=== PATIENT | female | born 1960 | race Asian ===

== ENCOUNTER 2016-09-18 10:58 | Inpatient (IN) | payer MEDICAID ==
[2016-09-17 14:47] VITALS: BMI 36.7
--- NOTE | 2016-09-17 19:45 | HP ---
DATE OF ADMISSION: 09/18/2016 ADMITTING DIAGNOSES: 1. Right breast cancer for right mastectomy with possible right axillary lymph node resection with dissection biopsy to be done by Dr. Alton Samuels. 2. Diabetes mellitus type 2, controlled. 3. Hypertension. 4. Osteoporosis. HISTORY OF PRESENT ILLNESS: The patient is a 56-year-old female ____ preoperative workup done on he r. Biopsy done and showed that she has right breast cancer. The patient was evaluated by Dr. Mary sheffield and then scheduled for biopsy on her. The patient had, on 06/20/2016, biopsy shows papilla ry carcinoma, nucleated, grade intermediate involved 3/4 tissue fragments. The patient admitted for further management and workup. HABITS: Not a smoker, drinker. No drug abuser. FAMILY HISTORY: The patient has a positive family history of diabetes mellitus, hypertension, heart disease, and cancer in family. MEDICATIONS: 1. Lantus 25 units subq daily. 2. Hyzaar 100/12.5 mg once a day. 3. Norvasc 10 mg once a day. 4. Allopurinol 100 mg once a day. 5. Glipizide 10 mg b.i.d. 6. Vitamin D 1000 units 3 times a day. PAST MEDICAL HISTORY: The patient has history of diabetes mellitus, hypertension, gout with gouty a rthritis, dyslipidemia, obesity, myopia, and her newly diagnosed breast cancer. PAST SURGICAL HISTORY: None. GYNECOLOGIC HISTORY: The patient and mother of 2 kids, normal delivery. REVIEW OF SYSTEMS: GASTROINTESTINAL: No history of upper or lower GI bleeding. No history of liver disease or abdomin al pain. RESPIRATORY: No shortness of breath or cough. No pulmonary tuberculosis or hemoptysis. CARDIOVASCULAR: Hypertension. No chest pain or peripheral vascular disease. EKG normal. She has no peripheral vascular disease. ENDOCRINE: Diabetes mellitus. No thyroid disease. History of hyperuricemia and hyperlipidemia. MUSCULOSKELETAL: No arthritis or joint disease. SKIN: No urticaria, dermatitis, or skin lesions. PHYSICAL EXAMINATION: GENERAL: The patient is awake, alert, looks stated age, not in pain or shortness of breath. VITAL SIGNS: On admission show blood pressure 130/80, pulse 82, temperature 97.6. She weighs 188 p ounds. She is 63 inches high. HEAD: Normocephalic, atraumatic. Pupils equal, react to light and accommodation. Sclerae anicteri c. Extraocular movements normal limits. Throat clear. No sign of acute infection seen. Facial sk in and scalp within normal limits. NECK: Supple, trachea central. No thyroid enlargement, no cervical lymphadenopathy. Carotid pulse normal. No jugular venous distention. CHEST: Normal contour with normal inspiration and expiration. LUNGS: Clear to auscultation and percussion. HEART: Regular sinus rhythm. No rub or murmur. PMI localized in midclavicular line, fourth interc ostal space. ABDOMEN: Umbilicus central. No organomegaly. No tenderness or rebound tenderness. Bowel sounds p ositive. GENITALIA: External genitalia within normal limits. EXTREMITIES: Upper and lower extremities normally shaped at this moment. No clubbing, no cyanosis, no deformity. Good peripheral pulse. No edema. IMPRESSION: 1. 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 Sa marj Samuels. 2. Diabetes mellitus type 2, controlled. PLAN: The patient cleared for surgery and will follow up. PROGNOSIS: Fair to guarded. CODE STATUS: FULL CODE. Dictated By: BRIDGER KESSLER/ROSA Conf#: [id number] DID#: [id number] CC: ALTON SAMUELS MD;*EndCC*
[~2016-09-18] VITALS: Ht 160 cm; Wt 84.5 kg
[2016-09-18] VITALS (24 sets, daily range): BP systolic 119–149; BP diastolic 57–79; PULSE 16–98; RESP 10–19; Ht 160 cm; Wt 84.5 kg
[~2016-09-18 10:58] MED LIST: EPHEDrine SULFATE 50 MG/5 ML SYG ONE
[2016-09-18] MEDS ORDERED: ISOSULFAN BLUE 1% 5 ML INJ SC ONE ×2 (11:46→14:00)
[2016-09-18] MEDS ORDERED: FENTAnyl 50 MCG/ML VIAL ONE ×3 (13:12→15:10)
[2016-09-18] MEDS ORDERED: LANT3I SC ×2 (13:41→13:42)
[2016-09-18] MEDS ORDERED: SAXA5TAB2 PO (13:45)
[2016-09-18] MEDS ORDERED: GLYB5TAB3 PO (13:45)
[2016-09-18] MEDS ORDERED: AMLO5TAB4 PO (13:46)
[2016-09-18] MEDS ORDERED: LOSA1TAB21 PO (13:46)
[2016-09-18] MEDS ORDERED: ALLO300T2 PO (13:48)
[2016-09-18] MEDS ORDERED: PRAV40TA76 PO (13:48)
[2016-09-18] MEDS ORDERED: CRAN250T2 PO (13:49)
[2016-09-18] MEDS ORDERED: CHOL100062 PO (13:49)
[2016-09-18] MEDS ORDERED: HYDROmorphONE (0.2 MG/ML) 10ML SYG IV PRN ×2 (14:00)
[2016-09-18] MEDS ORDERED: DIPHENHYDRAMINE 50 MG INJ IV PRN (14:00)
[2016-09-18] MEDS ORDERED: MEPERIDINE 25 MG INJ IV PRN (14:00)
[2016-09-18] MEDS ORDERED: FENTAnyl 50 MCG/ML VIAL IV PRN (14:00)
[2016-09-18] MEDS ORDERED: METOCLOPRAMIDE 10 MG INJ IV PRN (14:00)
[2016-09-18] MEDS ORDERED: ONDANSETRON 4 MG INJ IV PRN (14:00)
[2016-09-18] MEDS ORDERED: SUCCINYLCHOLINE CHLORIDE 100 MG/5 ML SYG IV ONE (15:20)
[2016-09-18] MEDS ORDERED: ROCURONIUM 50 MG INJ ONE (15:20)
[2016-09-18] MEDS ORDERED: PROPOFOL 40 ML ONE (15:20)
[2016-09-18] MEDS ORDERED: CEFAZOLIN 1 GM INJ ONE (15:20)
[2016-09-18] MEDS ORDERED: GLYCOPYRROLATE 0.4 MG INJ ONE (15:20)
[2016-09-18] MEDS ORDERED: NEOSTIGMINE 3 MG/3 ML SYRINGE ONE (15:20)
[2016-09-18] MEDS ORDERED: LIDOCAINE 2% (SDV) 5 ML INJ ONE (15:20)
[2016-09-18] MEDS: HYDROmorphONE (0.2 MG/ML) 10ML SYG IV PRN ×2 (16:27→16:40)
[2016-09-18] MEDS ORDERED: HYDROmorphONE 1 MG/ML SYG IV PRN (16:30)
[2016-09-18] MEDS ORDERED: HYDROCODONE/APAP (5/325) TAB PO PRN (16:30)
--- NOTE | 2016-09-18 16:43 | OPR ---
DATE OF OPERATION: 09/18/2016 PREOPERATIVE DIAGNOSIS: Right breast adenocarcinoma. POSTOPERATIVE DIAGNOSIS: Right breast adenocarcinoma. OPERATION PERFORMED: 1. Right mastectomy. 2. Right axillary sentinel lymph node sampling SURGEON: Alton Bravo MD OPTOMETRY ASSISTANT: None. ANESTHESIA: General endotracheal. ANESTHESIOLOGIST: BERT THAKKAR MD. COMPLICATIONS: None. SPECIMEN: Right breast with short superior, long lateral and axillary lymph nodes. INDICATION: This is a 56-year-old female with a right breast lesion with a positive biopsy for maste ctomy. Risks, benefits, alternatives have been reviewed from the patient, including but not limited to recurrence of cancer, infection, bleeding, wound formation, chronic pain, seroma, hematoma, absc ess, damage to nerves, lymphedema, need for further surgeries or procedures, heart attack, stroke, P E, DVT, pneumonia, organ failures or . The patient fully understands and elects to proceed wit h surgery. DISPOSITION: Tolerated procedure well and extubated and transferred to recovery in stable condition . All counts were correct at the end of the operation x2. PROCEDURE NOTE: The patient was brought in, placed supine on the operating table. SCDs were placed . Preoperative antibiotics administered and after induction of anesthesia, right shoulder was bumpe d and all areas were fully padded. She was prepped and draped sterilely. Time-out was performed. An elliptical incision was made on the breast to encompass 2 different moles she had. Therefore, th e incision had to be larger than usual. Dissection was carried superiorly to the clavicle, medially to the sternum, inferiorly to the inframammary fold and laterally to the axillary line and posterio rly removing the breast tissue with fascia off of the pectoralis. Complete hemostasis was obtained. Dissection was carried into the axilla and there was minimal blue dye at this time. After waiting a bout 20 to 30 minutes, the Lymphazurin was injected into the right upper lateral quadrant of the laura ast. A few samples of lymph nodes around blue dye were excised circumferentially with clips sutures tying the tissue with complete hemostasis. This was sent to pathology for frozen section. Wound was irrigated with warm water to clean suctioning fluid. There was complete hemostasis. A 19 -[place]oven[place] Emory was placed through the right axillary into the wound and secured with 2-0 nylon. The wound was closed in 2 layers with 2-0 running Vicryl dermal closure x2 followed by 4-0 Monocryl subc uticular closure followed by benzoin and Steri-Strips. Dressings and fluffs were applied. The florencio ent was extubated and transferred to recovery in stable condition. All counts were correct at the e nd of the operation x2. Dictated By: ALTON CORDOVA/ROSA Conf#: [id number] DID#: [id number]
[2016-09-18] MEDS: ONDANSETRON 4 MG INJ IV PRN (19:18)
[2016-09-18] MEDS: D5W-0.45 NACL + KCL 20 MEQ 1,000 ML IV SCH (21:33)
[2016-09-19] MEDS: ONDANSETRON 4 MG INJ IV PRN (00:24)
[2016-09-19] MEDS: D5W-0.45 NACL + KCL 20 MEQ 1,000 ML IV SCH ×3 (04:51→17:21)
[2016-09-19 05:49] LABS: ADD SCAN DIFF NO
[2016-09-19] MEDS: PANTOPRAZOLE (EC) 40 MG TAB PO SCH (05:49)
[2016-09-19 05:57] LABS: BASOPHILS % 0.1 % (0.0-2.0); HEMATOCRIT 30.4 % (37.0-47.0); HEMOGLOBIN 9.8 g/dl (12.0-16.0); LYMPHOCYTES % 6.5 % (15.0-51.0); MEAN CORPUSCULAR HEMOGLOBIN 29.6 pg (29.0-33.0); MEAN CORPUSCULAR HGB CONC 32.2 g/dl (32.0-37.0); MEAN CORPUSCULAR VOLUME 91.8 fl (82.0-101.0); MEAN PLATELET VOLUME 11.3 fl (7.4-10.4); MONOCYTE # 0.6 10^3/ul (0.3-0.9); MONOCYTES % 4.2 % (0.0-11.0); NEUTROPHIL # 13.6 10^3/ul (1.6-7.5); NEUTROPHILS % 88.8 % (39.0-77.0); PLATELET COUNT 239 10^3/UL (140-415); RED BLOOD COUNT 3.31 10^6/ul (4.20-5.40); WHITE BLOOD COUNT 15.3 10^3/ul (4.8-10.8)
[2016-09-19 06:16] LABS: CALCIUM 9.2 mg/dl (8.4-10.2); CREATININE 1.39 mg/dl (0.44-1.00); POTASSIUM 4.3 mmol/L (3.5-5.1)
[2016-09-19 07:26] VITALS: BP 122/60; RESP 16
[2016-09-19] MEDS ORDERED: GLUCOSE GEL 15 GRAM TUBE PO PRN ×2 (15:30)
[2016-09-19] MEDS ORDERED: GLUCAGON 1 MG INJ IM PRN (15:30)
[2016-09-19] MEDS ORDERED: GLUCOSE GEL 15 GRAM TUBE BUCCAL PRN (15:30)
[2016-09-19] MEDS ORDERED: DEXTROSE 50% 50 ML SYRINGE IV PRN ×2 (15:30)
[2016-09-19] MEDS: ACCU-CHEK XX SCH ×2 (17:37→21:00)
[2016-09-19] MEDS: INSULIN ASPART [NOVOLOG] 3 ML PEN SC SCH ×2 (18:05→21:34)
[2016-09-19 19:28] VITALS: BP 138/71; RESP 16
[2016-09-19] MEDS: HYDROCODONE/APAP (5/325) TAB PO PRN (20:36)
[2016-09-20] MEDS: PANTOPRAZOLE (EC) 40 MG TAB PO SCH (06:20)
--- NOTE | 2016-09-20 07:29 | PN ---
DATE: 09/19/2016 WORKING DIAGNOSES: 1. Postoperative day #1 right breast cancer mastectomy with lymph node dissection. 2. SANTANA drainage ____ with 55 mL serosanguineous fluid since surgery. 3. Diabetes mellitus type 2, uncontrolled. 4. Hypertension. SUMMARY: The patient is a 56-year-old female who had successful surgery by Dr. Bravo yesterday an d she was transferred to the floor postop and she is in stable condition. She denies any pain or sh ortness of breath. The patient had SANTANA drain right side drainage. Her chem panel done today shows B UN 29 and creatinine 1.3, and glucose was 236. Her Accu-Chek is started now. We will monitor her b lood sugar level. WBC postop 15.3, hemoglobin 9.8. Neutrophils 88.8. Total intake was 3190, output 1005 mL, 2185 positive. Weight is 84.5. MEDICATIONS: Currently on: 1. Protonix 40 mg once a day. 2. Zofran 4 mg q.6h. p.r.n. nausea, vomiting. 3. [place] 2 tabs q.4h. p.r.n. pain. 4. Dilaudid 0.5 IV as needed ____. 5. Potassium IV fluid D5 half NS with potassium at 80 mL an hour. PHYSICAL EXAMINATION: VITAL SIGNS: Today temperature was 98.7, pulse 98, respirations 19, blood pressure 122/60, pulse ox 98. GENERAL: The patient is awake, alert, looks stated age. HEENT: Head normocephalic, atraumatic. Pupils equal, react to light and accommodation. Sclerae an icteric. Extraocular movements normal limits. Throat clear. No sign of acute infection seen. Fac ial skin and scalp within normal limits. NECK: Supple, trachea central, no thyroid enlargement, no cervical lymphadenopathy. Carotid pulse normal. No jugular venous distention. CHEST: Normal contour. Normal inspiration and expiration. Patient had a surgical wound of right b reast resection with SANTANA drain. Wounds clean, dressing dry, ____the chest to prevent any hematoma po stoperatively. The patient denies any pain or itching in the chest. Left breast normal limits. LUNGS: Clear to auscultation and percussion. HEART: Regular sinus rhythm. No rub or murmur. PMI localized in midclavicular line, fourth interc ostal space. ABDOMEN: Umbilicus central. No organomegaly. No tenderness or rebound tenderness. Bowel sounds p ositive. GENITALIA: External genitalia within normal limits. VAGINAL AND RECTAL: Deferred. EXTREMITIES: Upper and lower extremities normally shaped at this moment. No clubbing, no cyanosis or deformity. Good peripheral pulse, no edema. NEUROLOGICAL: Cranial nerves II to XII and peripheral nerves, sensory and motor grossly normal limi ts. Gait normal. PLAN: We will do Accu-Chek on her twice a day with moderate sliding scale with NovoLog. I discusse d her case with the nurse, and Dr. Bravo. Total of drainage of around 150 mL postop____ 24 hours. We will monitor her for drainage. ____trending decreasing down ____can go home safety. IV fluid continue pending Dr. Bravo's orders. PROGNOSIS: Fair to guarded. CODE STATUS: FULL CODE. Dictated By: BRIDGER KESSLER/ROSA Conf#: [id number] DID#: [id number]
--- NOTE | 2016-09-20 07:34 | CONS ---
Date/Time of Note Date/Time of Note DATE: 09/20/16 TIME: 07:32 Consultation Date/Type/Reason Admit Date/Time Sep 18, 2016 at 17:31 Initial Consult Date 09/19/16 Type of Consultation: Anesthesiology Reason for Consultation Follow up 24 HR Interval Summary Free Text/Dictation Pt was seen and examined is post-op day #1 s/p right Mastectomy with sentinal lymph node biopsy. Pt was admitted post-op for hemodynamic monitoring. She states her pain level is currently minimal and pain is controlled adequately. No N/V/D/C. Will continue to follow up. Exam/Review of Systems Vital Signs Vitals Vital Signs Date Time Temp Pulse Resp B/P Pulse Ox O2 Delivery O2 Flow Rate FiO2 09/19/16 19:28 98.6 76 16 138/71 99 09/18/16 20:01 Room Air 09/18/16 16:49 6.0 Intake and Output 09/19/16 09/19/16 09/20/16 14:59 22:59 06:59 Intake Total 360 ml 1720 ml 1300 ml Output Total 2410 ml 870 ml Balance 360 ml -690 ml 430 ml Results Result Diagram: 09/19/16 0525 09/19/16 0525 Results 24 hrs Laboratory Tests Test 09/19/16 17:36 09/19/16 20:38 09/20/16 02:27 Bedside Glucose 161 189 122 Medications Medications Current Medications Ondansetron HCl (Zofran Inj) 4 mg Q6H PRN IV NAUSEA AND/OR VOMITING Last administered on 09/19/16 00:24; Admin Dose 4 MG; Start 09/18/16 at 16:30 Pantoprazole 40 mg 40 mg DAILY@06 PO Last administered on 09/20/16 06:20; Admin Dose 40 MG; Start 09/19/16 at 06:00 Potassium Chloride/Dextrose/ Sod Cl (D5-1/2ns + KCl 20 Meq) 1,000 ml @ 80 mls/ hr [id number] IV Last administered on 09/19/16 11:48; Admin Dose 80 MLS/HR; Start 09/18/16 at 16:21 Acetaminophen/ Hydrocodone Bitart ([place] (5/325)) 2 tab Q4H PRN PO Pain 6-10 Last administered on 09/19/16 20:36; Admin Dose 2 TAB; Start 09/18/16 at 16:30 Acetaminophen/ Hydrocodone Bitart ([place] (5/325)) 1 tab Q4H PRN PO Pain 1-5; Start 09/18/16 at 16:30 Hydromorphone HCl (Dilaudid) 0.5 mg Q2 PRN IV Breakthrough PAIN; Start at 16:30 Miscellaneous Information 1 ea NOTE XX ; Start 09/19/16 at 15:30 Glucose (Glutose) 15 gm Q15M PRN PO DECREASED GLUCOSE; Start 09/19/16 at 15:30 Glucose (Glutose) 22.5 gm Q15M PRN PO DECREASED GLUCOSE; Start 09/19/16 at 15: 30 Dextrose (D50w Syringe) 25 ml Q15M PRN IV DECREASED GLUCOSE; Start 09/19/16 at 15:30 Dextrose (D50w Syringe) 50 ml Q15M PRN IV DECREASED GLUCOSE; Start 09/19/16 at 15:30 Glucagon (Glucagen) 1 mg Q15M PRN IM DECREASED GLUCOSE; Start 09/19/16 at 15:30 Glucose (Glutose) 15 gm Q15M PRN BUCCAL DECREASED GLUCOSE; Start 09/19/16 at 15 :30 BERT THAKKAR Sep 20, 2016 07:34
[2016-09-20 07:46] VITALS: BP 107/51; RESP 16
[2016-09-20] MEDS: ACCU-CHEK XX SCH ×3 (07:48→17:30)
[2016-09-20] MEDS: HYDROCODONE/APAP (5/325) TAB PO PRN ×3 (08:01→17:32)
[2016-09-20] MEDS: INSULIN ASPART [NOVOLOG] 3 ML PEN SC SCH ×2 (08:04→12:19)
[2016-09-20] MEDS: D5W-0.45 NACL + KCL 20 MEQ 1,000 ML IV SCH (08:07)
[2016-09-20] MEDS: ONDANSETRON 4 MG INJ IV PRN ×2 (13:08→17:31)
--- NOTE | 2016-09-20 15:03 | PDOCDIS ---
Discharge Instructions CONDITION Patient Condition: Fair HOME CARE INSTRUCTIONS: Diet Instructions: Reduced Calorie ACTIVITY: Activity Restrictions: Avoid heavy lifting Bathing Restrictions: Tub Bath BRIDGER ACUNA MD Sep 20, 2016 15:03
--- NOTE | 2016-09-20 16:12 | DS ---
DATE OF ADMISSION: 09/18/2016 DATE OF DISCHARGE: 09/20/2016 ADMITTING DIAGNOSES: 1. Right breast cancer for radical mastectomy with lymph node resection. 2. Hypertension. 3. Diabetes mellitus type 2, controlled. 4. Hyperlipidemia. 5. Gout. PRINCIPAL PROCEDURE: Right breast radical mastectomy with resection of lymph nodes by Dr. Austin perkins. Then with a SANTANA drain placement. SUMMARY: The patient is a 56-year-old female admitted for right breast cancer resection which was d one on 09/18/2016. The patient's postoperative SANTANA drain culture was 150 today is 90 mL. She was ta ught how to change to G-tube. The patient postop was okay and no complications. Her vital signs today show temperature 98.6, pulse 72, respirations 16, blood pressure 107/51 and O2 saturation 97%. The patient is going home with following instructions and medications, continue ho or medications: HOME MEDICATIONS: 1. Allopurinol 100 mg once a day. 2. Glipizide 5 mg once a day. 3. [place] 10/325 t.i.d. p.o. p.r.n. pain. 4. Zofran 4 mg q.4h. p.r.n. We will follow up at home. PROGNOSIS: Fair to guarded. CODE STATUS: FULL CODE. An appointment was made with Dr. Bravo and Dr. Bearden. Dr Bravo in surgical consult, Dr. Trell nichols in oncology consult as outpatient. I will see her in the office after 4 days. We will follo w up. CONDITION ON DISCHARGE: Well and improved. Dictated By: BRIDGER KESSLER/ROSA Conf#: [id number] DID#: [id number]
== END 2016-09-20 20:20 | disposition home or self-care (01) | DRG 581 ==
LOC: INTOOBSV 10:58 → REC 10:58 → EDSTATUS 13:00 → OBSVTOIN 17:31 → MS2 20:40
PROVIDERS: ADMIT Surgery; ATTEND Surgery
PROC: 07B50ZX Excision of Right Axillary Lymphatic, Open Approach, Diagnostic (ICD-10-PCS; 2016-09-18)
PROC: 0HTT0ZZ Resection of Right Breast, Open Approach (ICD-10-PCS; principal; 2016-09-18 13:00)
DX: C50.911 Malignant neoplasm of unspecified site of right female breast (principal); E11.65 Type 2 diabetes mellitus with hyperglycemia; I10 Essential (primary) hypertension; E78.5 Hyperlipidemia, unspecified; M81.0 Age-related osteoporosis without current pathological fracture; M10.9 Gout, unspecified; E66.9 Obesity, unspecified; Z68.33 Body mass index [BMI] 33.0-33.9, adult
CPT/HCPCS: 80048; 82962; 84703; 85025; 88307; 88309; 99217; G0378; J0330; J0690; J1170; J1815; J2405; J2710; J3010; J3480; Q9968